=== PATIENT | female | born 1950 | race Caucasian/White ===

== ENCOUNTER 2020-04-03 19:43 | Emergency (ER) | payer BC, MEDICAID, MEDICARE ==
[~2020-04-03] VITALS: Ht 165.1 cm; Wt 55.0 kg
[~2020-04-03 19:43] MED LIST: LEVO137T2 PO
--- NOTE | 2020-04-03 20:07 | NUR ---
PER PATIENT SHE HAS BEEN HAVING VOMITING FOR THE LAST COUPLE OF WEEKS, PATIENT IS ALSO ENDORSING LOWER BACK PAIN, DENIES ANY TROUBLE URINATING OR ANY PAIN/ BURNING URINATING. PATIENT ALSO ENDORSES HER STOOL LOOKED YELLOW PATIENTS FAMILY REMEMBER REPORTS SHE HAS BEEN FORGETING MORE LATELY AND MORE FATGUE, SHE DENIES ANY RECENT FALLS. PATIENT HAS PUPILS EQUAL AND REACTIVE, GOOD ARM AND LEG STRENGTH PATIENT IS ENDORSING LOWER ABDOMINAL PAIN AND BILATERAL FLANK PAIN PATIENT IS AO Addendum: 04/03/20 at 4123 by GOOD PATIENT IS AO TO SELF PLACE AND MONTH BUT OFF ON THE YEARS, SHE THINKS ITS 2006. PATIENT KNEW THE PRESIDENT
[2020-04-03] MEDS ORDERED: ONDANSETRON 2MG/ML, 2ML ONE (20:26)
[2020-04-03] MEDS ORDERED: ONDANSETRON 2MG/ML, 2ML IVPush ONE (20:30)
[2020-04-03] MEDS ORDERED: SODIUM CHLORIDE 0.9% 1,000 ML IV ONE (20:30)
[2020-04-03] MEDS ORDERED: SODIUM CHLORIDE FLUSH 10ML SYR IVF ONE (20:30)
[2020-04-03 20:46] LABS: BASOPHILS # (AUTO) 0.02 x10^3/uL (0-0.1); BASOPHILS % (AUTO) 0 % (0-1); EOSINOPHILS % (AUTO) 0 % (1-7); LYMPHOCYTES # (AUTO) 0.81 x10^3/uL (1-3.4); LYMPHOCYTES % (AUTO) 13 % (22-44); MD NO; MEAN CORPUSCULAR HEMOGLOBIN 33.3 pg (27.0-34.8); MEAN CORPUSCULAR VOLUME 101.1 fL (80-100); MEAN PLATELET VOLUME 7.1 fL (7.4-10.4); MONOCYTES % (AUTO) 5 % (2-9); NEUTROPHILS # (AUTO) 5.28 x10^3/uL (1.8-6.8); NEUTROPHILS % (AUTO) 82 % (42-75); PLATELET COUNT 408 x10^3/uL (130-400); RED BLOOD COUNT 3.69 x10^6/uL (3.82-5.3); RED CELL DISTRIBUTION WIDTH 14.1 % (9.6-15.2)
[2020-04-03 20:52] VITALS: BP 149/73
[2020-04-03 20:52] LABS: ALANINE AMINOTRANSFERASE 128 U/L (12-78); ALBUMIN 4.2 g/dL (3.4-5.0); ANION GAP 10 mmol/L (5-15); CALCIUM 9.2 mg/dL (8.5-10.1); CHLORIDE 99 mmol/L (98-107); CREATININE 0.63 mg/dL (0.55-1.02)
[2020-04-03 20:54] LABS: ALKALINE PHOSPHATASE 79 U/L (45-117); BILIRUBIN,TOTAL 1.3 mg/dL (0.2-1.0)
--- NOTE | 2020-04-03 22:24 | NUR ---
patient sent to CT SCAN Addendum: 04/03/20 at 2224 by GOOD Amendment undone in ED - 04/03/20 at 2225 by GOOD PATIENT IS AO TO SELF PLACE AND MONTH BUT OFF ON THE YEARS, SHE THINKS ITS 2006. PATIENT KNEW THE PRESIDENT
[2020-04-03] MEDS ORDERED: OMNIPAQUE 350 MG/ML, 100ML BOTTLE ONE (22:37)
--- NOTE | 2020-04-03 22:52 | NUR ---
PATIENT REPORTS HER NAUSEA IMPROVED, SHE IS TOLERATING ICE CHIPS
[2020-04-03 23:26] LABS: MICROSCOPIC NOT IND
--- NOTE | 2020-04-04 00:33 | NUR ---
DISCHARGE PAPERWORK GIVEN AND EXPLAINED TO PATIENT AND SON, BOTH REPORTED UNDERSTANDING
== END 2020-04-04 00:35 | disposition home or self-care (01) ==
LOC: ED 21:33
DX: K80.20 Calculus of gallbladder without cholecystitis without obstruction (principal); R11.2 Nausea with vomiting, unspecified; E86.9 Volume depletion, unspecified; E03.9 Hypothyroidism, unspecified; M79.7 Fibromyalgia; Z90.710 Acquired absence of both cervix and uterus
CPT/HCPCS: 36415; 74177; 80053; 81003; 83690; 85025; 96361; 96374; 99285; J2405; J7030; Q9967